=== PATIENT | female | born 1995 | race Hispanic/Latino ===

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

== ENCOUNTER 2017-12-22 10:53 | Emergency (ER) | payer SELFPAY ==
[~2017-12-22] VITALS: Ht 144.8 cm; Wt 56.8 kg
[~2017-12-22 10:53] MED LIST changes: +AMOXICILLIN500 MG PO
[2017-12-22 12:24] VITALS: BP 120/80
== END 2017-12-22 12:24 | disposition home or self-care (01) | DRG 151 ==
LOC: ED 10:53
DX: R04.0 Epistaxis (principal)

== ENCOUNTER 2021-03-31 17:11 | Emergency (ER) | payer OTHER ==
[~2021-03-31] VITALS: Ht 144.8 cm; Wt 59.0 kg
[2021-03-31 17:53] VITALS: BP 109/77
[2021-03-31 18:34] LABS: HEMATOCRIT 38.9 % (37.0-47.0); HEMOGLOBIN 12.6 g/dl (12.0-16.0); IMMATURE GRANULOCYTES 0.1 % (0.0-5.0); MEAN CORPUSCULAR HGB 31.4 pG CALC (26.0-32.0); MEAN CORPUSCULAR HGB CONC 32.4 g/dL CAL (32.0-36.0); NEUT# 4.6 thou/uL (2.00-7.15); RED BLOOD COUNT 4.01 mill/uL (4.20-5.60); RED CELL DISTRI WIDTH 12.7 % (11.5-15.5)
[2021-03-31 18:53] LABS: ALBUMIN 4.1 g/dL (3.2-5.0); ALKALINE PHOSPHATASE 57 u/l (38-126); ANION GAP 12 (6-22 (CALC)); BUN 11 mg/dL (7-17); BUN/CREATININE RATIO 22 (12-20 (CALC)); CARBON DIOXIDE 22 mmol/l (22-30); CHLORIDE 108 mmol/l (95-108); CREATININE 0.5 mg/dL (0.5-1.0); GFR > 60 ML/MIN (>=60 (CALC)); GFR FOR AFR.AMER. > 60 ML/MIN (>=60 (CALC)); LIPASE 34 u/l (23-300); POTASSIUM 3.7 mmol/l (3.5-5.1); SGOT/AST 26 u/l (14-36); SODIUM 139 mmol/l (137-146); TOTAL PROTEIN 7.9 g/dL (6.3-8.2)
[2021-03-31 19:00] LABS: BILIRUBIN, TOTAL 1.1 mg/dL (0.0-1.4)
[2021-03-31] MEDS ORDERED: FIORICET PO (19:37)
== END 2021-03-31 20:03 | disposition home or self-care (01) | DRG 103 ==
LOC: ED 17:11
DX: G43.909 Migraine, unspecified, not intractable, without status migrainosus (principal); Z20.822 Contact with and (suspected) exposure to COVID-19

== ENCOUNTER 2024-02-25 08:33 | Emergency (ER) | payer OTHER ==
[2024-02-25] VITALS (11 sets, daily range): BP systolic 107–129; BP diastolic 68–94
[~2024-02-25] VITALS: Ht 144.8 cm; Wt 70.4 kg
[~2024-02-25 08:33] MED LIST changes: +FIORICET PO
[2024-02-25] MEDS ORDERED: KETOROLAC TROMETHAMINE 30 MG/ML SDV IV ONE (08:50)
[2024-02-25] MEDS ORDERED: SODIUM CHLORIDE 0.9% 1,000 ML IV ONE (08:50)
[2024-02-25] MEDS ORDERED: DiphenhydrAMINE HCL 50 MG/ML SDV IV ONE (08:50)
[2024-02-25] MEDS ORDERED: METOCLOPRAMIDE HCL 10 MG/2 ML SDV IV ONE (08:50)
[2024-02-25] MEDS ORDERED: DEXAMETHASONE SOD. PHOSPHATE 10 MG/ML VIAL IV ONE (08:50)
[2024-02-25 09:23] LABS: BASO% 0.7 % (0-3); EOS% 1.1 % (0-8); HEMATOCRIT 40.8 % (37.0-47.0); HEMOGLOBIN 13.4 g/dl (12.0-16.0); LYMPH% 49.3 % (15-41); MEAN CELL VOLUME 91.5 fL CALC (80.0-100.0); MEAN CORPUSCULAR HGB CONC 32.8 g/dL CAL (32.0-36.0); MONO% 10.6 % (2-13); NEUT# 1.09 thou/uL (2.00-7.15); NEUT% 38.3 % (42-76); RED BLOOD COUNT 4.46 mill/uL (4.20-5.60); RED CELL DISTRI WIDTH 12.7 % (11.5-15.5)
[2024-02-25 09:37] LABS: ALBUMIN 4.4 g/dL (3.2-5.0); BILIRUBIN, TOTAL 0.7 mg/dL (0.02-1.3); CREATININE 0.6 mg/dL (0.5-1.0); POTASSIUM 3.9 mmol/l (3.5-5.1); TOTAL PROTEIN 7.8 g/dL (6.3-8.2)
== END 2024-02-25 11:23 | disposition home or self-care (01) | DRG 103 ==
LOC: ED 08:33
PROVIDERS: Family Medicine
DX: G43.909 Migraine, unspecified, not intractable, without status migrainosus (principal)
CPT/HCPCS: J1100; J1200; J2765